=== PATIENT | female | born 1965 | race Caucasian/White ===

== ENCOUNTER 2018-01-23 05:55 | Emergency (ER) | payer BC, OTHER, SELFPAY ==
[~2018-01-23] VITALS: Ht 180.3 cm; Wt 77.8 kg
[2018-01-23 05:57] VITALS: BP 129/81
== END 2018-01-23 06:35 | disposition home or self-care (01) ==
LOC: ED 06:26
DX: H65.02 Acute serous otitis media, left ear (principal)
CPT/HCPCS: 99283